=== PATIENT | female | born 1995 | race Caucasian/White ===

== ENCOUNTER 2016-09-11 11:21 | Emergency (ER) | payer OTHER ==
[~2016-09-11] VITALS: Ht 182.9 cm; Wt 76.7 kg
[2016-09-11 11:29] VITALS: TEMP 37.3; Ht 182.9 cm; Wt 76.7 kg
[2016-09-11] MEDS ORDERED: BUSP-8 PO (11:53)
--- NOTE | 2016-09-11 12:20 | EMERGENCY ROOM VISIT NOTE ---
History Report prepared by Miranda: Ana M Lopez Under the Supervision of: Dr. Tone Cano M.D. First contact with patient: 12:03 Chief Complaint: SYNCOPE (NEAR SYNCOPE) Stated Complaint: SYNCOPE Nursing Triage Summary: Pt states that she has been generally weak all this week. While at work today she had a near syncopal episiode. Episiode was witnessed by co-workers, patient denies LOC/ heading head. History of Present Illness The patient is a 21 year old female who presents to the Emergency Room with complaints of a sudden near syncopal episode that occurred just prior to arrival. She currently rates her discomfort as a 4/10 in severity. The patient reports that recently she has been waking up each morning feeling fatigued. She states that today she woke up fatigued, so she states that she laid back down. The patient states that she went to work and noted that her vision became fuzzy and then she had a loss of vision for five seconds. She reports that she had a near syncopal episode and a doctor in the store took her blood pressure and was noted to be hypotensive. The patient states that this happened to her as a child, and additionally notes that this happened to her brother. She reports eating yogurt this morning and states that she drank some coffee. The patient does report a decrease in appetite. She notes that she lost her mother two years ago and has been feeling depressed and sad. The patient states that her decrease in appetite could be related to her recent depression. She denies seeing anyone about coping with the loss of her mother. The patient reports nausea, breathing difficulties, lightheadedness, and diaphoresis today. She denies any fever, chills, or vomiting. The patient reports a family history of diabetes, cancer, and heart disease. She denies any personal medical history. The patient denies any suicidal ideation or homicidal ideation. She reports that she is on BuSpar for her depression and anxiety. The patient denies any chance of . Source of History: patient Onset: prior to arrival Position: other (global) Symptom Intensity: 4/10 Quality: other (near syncopal episode) Timing: other (sudden) Associated Symptoms: + diaphoresis, + nausea, No fevers, No chills, No vomiting Note: Associated Symptoms; depression, difficulty breathing, lightheadedness, visual disturbances Review of Systems All systems have been listed, reviewed, and are negative other than those previously mentioned. Please see Additional Medical History Sheet. Past Medical & Surgical Medical Problems: (1) Asthma (2) Bronchitis (3) Pneumonia Surgical Problems: (1) S/P tonsillectomy Family History Cancer Diabetes mellitus Heart disease Seizures Social History Smoking Status: Current Every Day Smoker Alcohol Use: none Marital Status: single Occupation Status: employed Current/Historical Medications Scheduled Buspirone Hcl (Buspirone Hcl), 15 MG PO TID Allergies Coded Allergies: No Known Allergies (Verified , 09/11/16) Physical Exam Vital Signs Date Time Temp Pulse Resp B/P (MAP) Pulse Ox O2 Delivery O2 Flow Rate FiO2 09/11/16 14:08 77 16 128/81 100 Room Air 09/11/16 12:36 82 110/76 102 119/71 108 148/82 09/11/16 11:38 82 09/11/16 11:30 Room Air 09/11/16 11:29 37.3 89 18 101/75 100 Room Air Physical Exam GENERAL: Patient awake, alert, oriented x 3. Patient follows commands. Patient does not appear toxic. Patient is adequately hydrated and well- nourished. SKIN: Multiple tattoos noted. No erythema, pallor, cyanosis or rash HEENT: Normal head, pupils equal, reactive to light and accommodation. Increased wax left ear. Oral cavity and posterior pharynx appear normal. Neck : Without adenopathy, no neck vein distention. LUNGS: Clear to auscultation. No wheezes, no rales, no rhonchi. HEART: No murmurs. No gallops. No rubs ABDOMEN: Patient has slight tenderness in left lower abdomen. No masses, no rebound, no guarding, no hepatomegaly or splenomegaly. EXTREMITIES: No signs of trauma. No pedal or pretibial edema. No calf or thigh tenderness. NEUROLOGIC: Cranial nerves II-XII within normal limits. No gross motor sensory function deficits. PSYCHIATRIC: Patient is awake alert oriented but seems despondent. Patient is tearful at times. Patient denies suicidal ideation. Medical Decision & Procedures ER Provider Diagnostic Interpretation: X ray results are stated below per my interpretation and the radiologist's interpretation. CHEST 2 VIEWS ROUTINE CLINICAL HISTORY: Syncope. COMPARISON STUDY: Chest radiograph March 07, 2012. FINDINGS: Lung volumes are normal. There is no pneumothorax or pleural effusion. Lungs are clear. Cardiac size is normal. Mediastinal contours are normal. There is no evidence of pulmonary edema. IMPRESSION: No acute cardiopulmonary findings. Electronically signed by: Adam Thompson M.D. 09/11/2016 2:08 PM Dictated Date/Time: 09/11/2016 2:08 PM Laboratory Results 09/11/16 12:30 Red Blood Count 4.61, Mean Corpuscular Volume 87.9, Mean Corpuscular Hemoglobin 30.2, Mean Corpuscular Hemoglobin Concent 34.3, Mean Platelet Volume 10.0, Neutrophils (%) (Auto) 85.2, Lymphocytes (%) (Auto) 8.5, Monocytes (%) (Auto) 5.7, Eosinophils (%) (Auto) 0.2, Basophils (%) (Auto) 0.2, Neutrophils # (Auto) 4.52, Lymphocytes # (Auto) 0.45, Monocytes # (Auto) 0.30, Eosinophils # (Auto) 0.01, Basophils # (Auto) 0.01 09/11/16 12:30 Test 09/11/16 12:30 09/11/16 12:45 White Blood Count 5.30 K/uL (4.8-10.8) Red Blood Count 4.61 M/uL (4.2-5.4) Hemoglobin 13.9 g/dL (12.0-16.0) Hematocrit 40.5 % (37-47) Mean Corpuscular Volume 87.9 fL (80-100) Mean Corpuscular Hemoglobin 30.2 pg (25-34) Mean Corpuscular Hemoglobin Concent 34.3 g/dl (32-36) Platelet Count 149 K/uL (130-400) Mean Platelet Volume 10.0 fL (7.4-10.4) Neutrophils (%) (Auto) 85.2 % Lymphocytes (%) (Auto) 8.5 % Monocytes (%) (Auto) 5.7 % Eosinophils (%) (Auto) 0.2 % Basophils (%) (Auto) 0.2 % Neutrophils # (Auto) 4.52 K/uL (1.4-6.5) Lymphocytes # (Auto) 0.45 K/uL (1.2-3.4) Monocytes # (Auto) 0.30 K/uL (0.11-0.59) Eosinophils # (Auto) 0.01 K/uL (0-0.5) Basophils # (Auto) 0.01 K/uL (0-0.2) RDW Standard Deviation 37.3 fL (36.4-46.3) RDW Coefficient of Variation 11.7 % (11.5-14.5) Immature Granulocyte % (Auto) 0.2 % Immature Granulocyte # (Auto) 0.01 K/uL (0.00-0.02) Anion Gap 7.0 mmol/L (3-11) Est Creatinine Clear Calc Drug Dose 112.6 ml/min Estimated GFR () 103.9 Estimated GFR (Non- 89.6 BUN/Creatinine Ratio 7.9 (10-20) Calcium Level 8.9 mg/dl (8.5-10.1) Total Bilirubin 0.4 mg/dl (0.2-1) Aspartate Amino Transf (AST/SGOT) 14 U/L (15-37) Alanine Aminotransferase (ALT/SGPT) 19 U/L (12-78) Alkaline Phosphatase 59 U/L (45-117) Total Protein 6.9 gm/dl (6.4-8.2) Albumin 3.9 gm/dl (3.4-5.0) Globulin 3.0 gm/dl (2.5-4.0) Albumin/Globulin Ratio 1.3 (0.9-2) Urine Color YELLOW Urine Appearance CLEAR (CLEAR) Urine pH 8.0 (4.5-7.5) Urine Specific [place] 1.012 (1.000-1.030) Urine Protein TRACE (NEG) Urine Glucose (UA) NEG (NEG) Urine Ketones NEG (NEG) Urine Occult Blood NEG (NEG) Urine Nitrite NEG (NEG) Urine Bilirubin NEG (NEG) Urine Urobilinogen NEG (NEG) Urine Leukocyte Esterase NEG (NEG) Urine WBC (Auto) 1-5 /hpf (0-5) Urine RBC (Auto) 0-4 /hpf (0-4) Urine Hyaline Casts (Auto) 1-5 /lpf (0-5) Urine Epithelial Cells (Auto) >30 /lpf (0-5) Urine Bacteria (Auto) NEG (NEG) Urine Test NEG (NEG) Laboratory results as stated above per my review. ECG Indication: syncope Rate (beats per minute): 81 Rhythm: normal sinus Findings: no acute ischemic change, no ectopy ED Course 1203: Past medical records reviewed. The patient was evaluated in room A2. A complete history and physical examination was performed. 1411: I reevaluated the patient and she is resting comfortably. I discussed the exam findings with her and I discussed the treatment plan. She verbalized complete understanding and agreement. She is ready to go home. Medical Decision Nurses notes reviewed. Medical history sheet reviewed. Differential diagnosis includes but is not limited to: near syncope, seizure, dehydration, anemia, metabolic disorder, depression. The patient had a near-syncopal episode this morning. She has been depressed recently and not eating or drinking very much. Multiple labs, urinalysis, EKG and imaging were obtained. Please see above. EKG reveals no ectopy or QT prolongation. The patient is not anemic. She does not appear to have a metabolic disorder. She is not orthostatic. I believe part of her problem is her underlying depression and dehydration. The patient was encouraged to follow -up with a family physician and possibly a psychiatrist. The patient is currently taking an antidepressant. Medication Reconciliation: I attest that I have personally reviewed the patient' s current medication list. Blood pressure Screening: Patient was found to have normal blood pressure on screening and does not require follow up. Impression Primary Impression: Near syncope Additional Impression: Depression Scribe Attestation The scribe's documentation has been prepared under my direction and personally reviewed by me in its entirety. I confirm that the note above accurately reflects all work, treatment, procedures, and medical decision making performed by me. Departure Information Dispostion Home / Self-Care Referrals Tuan Min III, M.D. (PCP) Forms HOME CARE DOCUMENTATION FORM, IMPORTANT VISIT INFORMATION Patient Instructions ED Near Syncope Unkn, My [facility] Additional Instructions Continue your depression medicine as prescribed. Follow-up with your family physician and a psychiatrist or psychologist. Drink extra fluids. Return here if you have another fainting episode. Problem Qualifiers
[2016-09-11 12:43] LABS: BASO % 0.2 %; BASO ABS # 0.01 K/uL (0-0.2); COMPLETE YES; EOS % 0.2 %; HEMATOCRIT 40.5 % (37-47); IG% 0.2 %; LYMPH % 8.5 %; LYMPH ABS # 0.45 K/uL (1.2-3.4); MEAN CELL VOLUME 87.9 fL (80-100); MEAN CORPUSCULAR HEMOGLOBIN 30.2 pg (25-34); MEAN CORPUSCULAR HGB CONC 34.3 g/dl (32-36); MONO % 5.7 %; NEUT % 85.2 %; PLATELET COUNT 149 K/uL (130-400); RED BLOOD COUNT 4.61 M/uL (4.2-5.4)
[2016-09-11 13:03] LABS: BUN/CREATININE RATIO 7.9 (10-20); CALCIUM 8.9 mg/dl (8.5-10.1); CREATININE 0.92 mg/dl (0.60-1.20); POTASSIUM 3.7 mmol/L (3.5-5.1)
[2016-09-11 13:06] LABS: ALB/GLOB RATIO 1.3 (0.9-2)
[2016-09-11 13:21] LABS: URINE APPEARANCE CLEAR (CLEAR); URINE BILIRUBIN NEG (NEG); URINE COLOR YELLOW; URINE EPITHELIAL CELL AUTO >30 /lpf (0-5); URINE NITRITE NEG (NEG); URINE SPECIFIC GRAVITY 1.012 (1.000-1.030); UROBILINOGEN NEG (NEG); ZZUR CULT IF INDIC CLEAN CATCH NO
[2016-09-11 13:25] LABS: MANUAL MICROSCOPIC REQUIRED? NO; REVIEW REQ? NO; SULFASALICYLIC ACID POS (NEG)
[2016-09-11 14:08] VITALS: BP 128/81; PULSE 77; O2SAT 100
--- NOTE | 2016-09-11 14:10 | DIAGNOSTIC IMAGING REPORT ---
CHEST 2 VIEWS ROUTINE CLINICAL HISTORY: Syncope. COMPARISON STUDY: Chest radiograph March 07, 2012. FINDINGS: Lung volumes are normal. There is no pneumothorax or pleural effusion. Lungs are clear. Cardiac size is normal. Mediastinal contours are normal. There is no evidence of pulmonary edema. IMPRESSION: No acute cardiopulmonary findings. Electronically signed by: Adam Thompson M.D. 09/11/2016 2:08 PM Dictated Date/Time: 09/11/2016 2:08 PM
== END 2016-09-11 14:31 | disposition home or self-care (01) ==
LOC: EDBD 11:21 → C.EDA 11:23
DX: R55 Syncope and collapse (principal); F32.9 Major depressive disorder, single episode, unspecified; F41.9 Anxiety disorder, unspecified; J45.909 Unspecified asthma, uncomplicated; F17.200 Nicotine dependence, unspecified, uncomplicated; Z87.01 Personal history of pneumonia (recurrent); Z90.89 Acquired absence of other organs; Z83.3 Family history of diabetes mellitus; Z79.899 Other long term (current) drug therapy